=== PATIENT | male | born 1980 | race Two or more races ===

== ENCOUNTER 2016-11-26 19:07 | Emergency (ER) | payer MEDICAID ==
[~2016-11-26] VITALS: Ht 172.7 cm; Wt 74.8 kg
[2016-11-26 19:19] VITALS: BP 121/100
== END 2016-11-26 22:20 | disposition home or self-care (01) ==
LOC: ER 19:15
DX: H10.31 Unspecified acute conjunctivitis, right eye (principal); F17.210 Nicotine dependence, cigarettes, uncomplicated; F12.10 Cannabis abuse, uncomplicated